=== PATIENT | female | born 1955 | race Caucasian/White ===

== ENCOUNTER 2023-12-30 08:04 | Outpatient (OUT) | payer MEDICARE, SELFPAY ==
[2023-12-30 08:43] LABS: Basophils Percent Auto 0.4 % (0.2-2.0); Eosinophils Absolute Auto 0.2 10^3/uL (0.0-0.7); Eosinophils Percent Auto 2.7 % (0.9-7.0); Hematocrit 42.7 % (36.0-48.0); Hemoglobin 14.1 g/dL (12.0-16.0); Immature Granulocytes Abs Auto 0.01 10^3/uL (0.00-0.03); Immature Granulocytes Pct Auto 0.2 % (0.0-0.5); Lymphocytes Absolute Auto 0.9 10^3/uL (1.2-3.8); Lymphocytes Percent Auto 16.2 % (20.5-60.0); Mean Corpuscular Hemoglobin 30.7 pg (26.7-34.0); Mean Corpuscular Volume 92.8 fL (81.0-99.0); Mean Platelet Volume 10.8 fL (9.5-13.5); Monocytes Absolute Auto 0.5 10^3/uL (0.3-0.8); Monocytes Percent Auto 9.6 % (1.7-12.0); Neutrophils Absolute Auto 3.9 10^3/uL (1.4-6.5); Neutrophils Percent Auto 70.9 % (43.0-75.0); Platelet Count 160 10^3/uL (150-450); Red Cell Distribution Width 12.9 % (11.0-15.0); White Blood Count 5.5 10^3/uL (4.0-11.0)
[2023-12-30 09:19] LABS: Alanine Aminotransferase 27 U/L (14-59); Albumin Globulin Ratio 1.1; Albumin Level 3.4 g/dL (3.4-5.0); Alkaline Phosphatase 111 U/L (46-116); Anion Gap 13.8; Aspartate Amino Transferase 23 U/L (15-37); BUN Creatinine Ratio 13.7; Bilirubin Total 0.5 mg/dL (0.2-1.0); Calcium 8.8 mg/dL (8.5-10.1); Carbon Dioxide 25.9 mmol/L (21.0-32.0); Chloride 109 mmol/L (98-107); Chol HDL Ratio 2.3; Cholesterol 150 mg/dL (<=200); Estimated GFR (African America >60 (>=60 mL/min/1.73m^2); Estimated GFR (Non-African Ame 54 (>=60 mL/min/1.73m^2); Globulin 3.2 g/dL; Glucose 89 mg/dL (74-106); HDL Cholesterol 66 mg/dL (40-60); Potassium 4.7 mmol/L (3.5-5.1); Sodium 144 mmol/L (136-145); Total Protein 6.6 g/dL (6.4-8.2); Triglycerides 33 mg/dL (<=150); VLDL CHOLESTEROL 6.6 mg/dL
== END 2023-12-30 08:05 | disposition home or self-care (01) ==
LOC: LAB 08:09
PROVIDERS: PCP Family Medicine; Visit Provider Family Medicine
DX: Z00.00 Encounter for general adult medical examination without abnormal findings (principal); E16.2 Hypoglycemia, unspecified; E55.9 Vitamin D deficiency, unspecified; E78.00 Pure hypercholesterolemia, unspecified; Z13.220 Encounter for screening for lipoid disorders; Z13.6 Encounter for screening for cardiovascular disorders
CPT/HCPCS: 36415; 80053; 80061; 82306; 85025

== ENCOUNTER 2024-10-19 08:34 | Outpatient (OUT) | payer MEDICARE, SELFPAY ==
--- OUTSIDE RECORDS SUMMARY | 2024-10-19 08:38 | XMS_ITS | Clinical Summary ---
Author Organization [facility] Address [address] [place] [address] Phone Care Team Providers Care Gymnasium Teacher Name Role Phone Unavailable Primary Care Provider Unavailabl e Social History Tobacco Use Types Packs/Day Years Used Date Smoking Tobacco: Never Assessed Comments Unknown Sex and Gender Information Value Date Recorded Sex Assigned at Not on file Legal Sex Female 7:37 PM EST Gender Identity Not on file Sexual Orientation Not on file Plan of Treatment Not on file
--- OUTSIDE RECORDS SUMMARY | 2024-10-19 08:38 | XMS_ITS | Encounter Summary ---
Author Organization [facility] Address [address] [place] [address] Care Team Providers Care Geological Specialist Name Role Phone Delmis Carlisle DO Primary Care Provider [phone] Delmis Carlisle DO Unavailable [phone] Reason for Visit * Reason Comments Med Refill Encounter Details Date Type Department Care Team (Late st Contact Info) Description 12/28/2023 Refill [facility] [address] [facility] [address] [place] [phone] Delmis Carlisle, DO [address] [facility] [address] [place] [address] Pure hypercholesterolemia Social History Tobacco Use Types Packs/Day Years Used Date Smoking Tobacco: Never Smokeless Tobacco: Never Alcohol Use Standard Drinks/Week Comments Not Currently 0 (1 standard drink = 0.6 oz pure alcohol) caffeine intake: 3-4 cups per day of coffee; soda AUDIT-C Answer Date Recorded Q1: How often do you have a drink containing alcohol? Never 09/24/2022 Q2: How many drinks containi ng alcohol do you have on a typical day when you are drinking? Patient does not drink Q3: How often do you have si x or more drinks on one occasion? Never 09/24/2022 PHQ-2 Answer Date Recorded Patient Health Questionnaire-2 Score 0 11/06/2023 Comments No Sex and Gender Information Value Date Recorded Sex Assigned at Not on file Legal Sex Female 6:54 PM EDT Gender Identity Not on file Sexual Orientation Not on file documented as of this encounter Plan of Treatment Upcoming Encounters Date Type Department Care Team (Late st Contact Info) Description 06/09/2025 10:30 AM EDT Office Visit [facility] [address] [place] [address] Andriy Jones DO [address] [place] [address] documented as of this encounter Visit Diagnoses Diagnosis Pure hypercholesterolemia Pure hypercholesterolemia documented in this encounter Care Teams Geological Specialist Relationship Specialty Start Date End Date Delmis Carlisle DO [address] [place] [address] PCP - General Family Medicine 09/24/22 Delmis Carlisle DO [address] [place] [address] PCP - [employer] 01/09/24 documented as of this encounter
--- OUTSIDE RECORDS SUMMARY | 2024-10-19 08:38 | XMS_ITS | Encounter Summary ---
Author Organization [facility] Address [address] [facility] [place] [address] Care Team Providers Care Traffic Or System Dispatcher Name Role Phone Delmis Carlisle DO Primary Care Provider [phone] Delmis Carlisle DO Unavailable [phone] Encounter Details Date Type Department Care Team (Late st Contact Info) Description 09/24/2022 Orders Only [facility] [address] [place] [address] Kayli Owens LPN Social History Tobacco Use Types Packs/Day Years Used Date Smoking Tobacco: Never Smokeless Tobacco: Never Tobacco Cessation:Counseling Given: Not Answered Alcohol Use Standard Drinks/Week Comments Not Currently 0 (1 standard drink = 0.6 oz pur e alcohol) AUDIT-C Answer Date Recorded Q1: How often do you have a drink containing alcohol? Never 09/24/2022 Q2: How many drinks containi ng alcohol do you have on a typical day when you are drinking? Patient does not drink Q3: How often do you have si x or more drinks on one occasion? Never 09/24/2022 PHQ-2 Answer Date Recorded Patient Health Questionnaire-2 Score 0 09/25/2022 Comments Unknown Sex and Gender Information Value Date Recorded Sex Assigned at Not on file Legal Sex Female 6:54 PM EDT Gender Identity Not on file Sexual Orientation Not on file documented as of this encounter Functional Status * Audit-C Score Answer Date of Assessment Author 0 09/24/2022 1:39 PM EDT Anthony Owens LPN * Question Answer Date of Assessment Author Q1: How often do you have a drink containing alcohol? Never 09/24/2022 1:39 PM EDT Kayli Owens LPN Q2: How many drinks containing alcohol do you have on a typical day when you are drinking? Patient does not drink 09/24/2022 1:39 PM EDT Kayli Owens LPN Q3: How often do you have six or more drinks on one occasion? Never 09/24/2022 1:39 PM EDT Kayli Owens LPN * Over the past 2 weeks, how often have you been bothered by any of the following problems? Question Answer Date of Assessment Author Little interest or pleasure in doing things Not at all 09/25/2022 7:16 AM EDT Destiny Fam MA Feeling down, depressed, or hopeless Not at all 09/25/2022 7:16 AM EDT Destiny Fam MA Patient Health Questionnaire -2 Score 0 09/25/2022 7:16 AM EDT Destiny Fam MA documented as of this encounter Plan of Treatment Upcoming Encounters Date Type Department Care Team (Late st Contact Info) Description 06/09/2025 10:30 AM EDT Office Visit [facility] [place] [facility] [address] [place] [phone] Andriy Jones DO [address] [place] [address] documented as of this encounter Visit Diagnoses Not on filedocumented in this encounter Care Teams Traffic Or System Dispatcher Relationship Specialty Start Date End Date Delmis Carlisle DO [address] [place] [address] PCP - General Family Medicine 09/24/22 Delmis Carlisle DO [address] [place] [address] PCP - [employer] 01/09/24 documented as of this encounter
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
--- OUTSIDE RECORDS SUMMARY | 2024-10-19 08:38 | XMS_ITS | Clinical Summary ---
Author Organization [facility] Address [address] [place] [address] Care Team Providers Care Remote Coders Name Role Phone Delmis Carlisle DO Primary Care Provider [phone] Delmis Carlisle DO Unavailable Allergies No known active allergies Medications Multiple Vitamins-Minerals (Emergen-C Immune) pack as directed Orally Active cholecalciferol (Vitamin D-3) 25 MCG (1000 UT) capsule Take 1,000 Units by mouth in the morning. Active co-enzyme Q-10 30 MG capsule Take 30 mg by mouth Daily Active Nutritional Supplements (JOINT FORMULA PO) Take by mouth Active sertraline (Zoloft) 100 MG tabletIndications:Anxie ty TAKE 1 AND 1/2 TABLETS DAILY BY MOUTH 135 tablet 3 024 Active Additional Information Patient taking differently: 1 tablet Oral Daily, Reported on 07/27/2024 fluticasone (Flonase) 50 MCG/ACT nasal sprayIndications:Nasal turbinate hypertrophy SPRAY 2 SPRAYS INTO EACH NOSTRIL IN THE MORNING 48 mL 1 024 Active esomeprazole (NexIUM) [address] capsuleIndications:Tigre roesophageal reflux disease without esophagitis Take 1 capsule (40 mg) by mouth Daily 90 capsule 3 025 Active rosuvastatin (Crestor) 5 MG tabletIndications:Pure hypercholesterolemia Take 1 tablet (5 mg) by mouth in the morning. 90 tablet 3 025 Active estradiol (Estrace) 0.1 MG/GM vaginal cream Insert 1 g into the vagina 2 (two) times a week Active Active Problems Problem Noted Date Diagnosed Date Stage 3a chronic kidney disease (CKD) 01/05/2024 Assessment & Plan (01/05/2024 8:02 PM EDT): Discussed with pt. She is to avoid NSAIDs. Will monitor this but no significant concern at this time. Slow transit constipation 11/06/2023 Assessment & Plan (11/06/2023 1:05 PM EDT): Discussed at length with the pt. She is to increase her water intake, Recommend colace daily and miralax 2 days a week. Doesn't need to use metamucil. Will also get an US of her abdomen for further evaluation. She is to call with any problems or not improving. Anxiety disorder 09/24/2022 Assessment & Plan (04/27/2023 2:12 PM EST): Discussed options. Will wean off zoloft and start lexapro. She is to call with any problems or not improving. Encouraged to continue working on a regular exercise routine. Also recommended looking into counseling. Atrophic vaginitis 09/24/2022 Chronic frontal sinusitis 09/24/2022 Epigastric pain 09/24/2022 Gastroesophageal reflux disease without esophagi tis 09/24/2022 Hot flashes due to menopause 09/24/2022 Urge incontinence of urine 09/24/2022 Vitamin D deficiency 09/24/2022 Pure hypercholesterolemia 09/24/2022 Assessment & Plan (04/27/2023 2:12 PM EST): Recommend with her [facility] that she continues to take crestor daily. Hypoglycemia 05/29/2010 Internal hemorrhoids without complication 2009 Irritable bowel syndrome 09/26/2009 Assessment & Plan (01/05/2024 8:01 PM EDT): Discussed at length with the pt. Encouraged to continue with increased water intake. I don't recommend supplement/herbal medications due to no studies, regulation, and not knowing if they will interact with her other medications. Recommend colace daily. If this is not enough she can take miralax as well but when she did this before she had diarrhea. Will also try and get linzess but not sure she will be able to get this due to cost. Migraine without aura, not refractory 07/12/2009 Encounters Date Type Department Care Team Description 09/07/2024 Telephone [facility] [address] [place] [address] Debi Velazco LPN 07/27/2024 11:30 AM EDT Office Visit [facility] [address] [place] [address] Delmis Carlisle, Acute bronchitis, unspecified organism (Primary Dx) 07/27/2024 Bamboo flowsheet [facility] [address] [place] [address] Delmis Carlisle DO 07/27/2024 Travel from Last 3 Months Immunizations Immunization Administration Dates Next Due Tdap 09/26/2021 Family History Medical History Relation Name Comments COD Cousin Ovarian cancer Cousin Heart disease Father Hyperlipidemia Father Diabetes Maternal Grandfather Heart disease Maternal Grandmother Heart disease Mother Hyperlipidemia Mother Hypertension Mother Heart disease Paternal Grandfather Heart disease Sibling Melanoma Neg Hx Relation Name Status Comments Cousin Daughter Alive Father Maternal Grandfather Maternal Grandmother Mother Paternal Grandfather Paternal Grandmother Sibling Alive 1 brother and 1 sister-healthy Son Alive x2 Social History Tobacco Use Types Packs/Day Years [...] Date Recorded Patient Health Questionnaire-2 Score 0 07/27/2024 Comments No Sex and Gender Information Value Date Recorded Sex Assigned at Not on file Legal Sex Female 6:54 PM EDT Gender Identity Not on file Sexual Orientation Not on file Last Filed Vital Signs Vital Sign Reading Time Taken Comments Blood Pressure 114/68 07/27/2024 11:29 AM EDT Pulse 84 07/27/2024 11:29 AM EDT Temperature 36.7 C (98.1 F) 07/27/2024 11:29 AM EDT Respiratory Rate - - Oxygen Saturation 94% 07/27/2024 11:29 AM EDT Inhaled Oxygen Concentration - - Weight 67.6 kg (149 lb) 07/27/2024 11:29 AM EDT Height 160 cm (5' 3 ) 07/27/2024 11:29 AM EDT Body Mass Index 26.39 07/27/2024 11:29 AM EDT Plan of Treatment Upcoming Encounters Date Type Department Care Team (Late st Contact Info) Description 06/09/2025 10:30 AM EDT Office Visit [facility] [address] [place] [address] Andriy Jones DO [address] [place] [address] Health Maintenance Due Date Last Done Comments CT Colonography 1957 FIT 1957 FOBT 1955 Sigmoidoscopy 1955 FIT-DNA 02/14/2023 02/15/2020, 02/15/2020 Mammogram 07/16/2023 07/15/2022, 0403/2021, 06/07/2020, Additional history exists Medicare Annual Wellness (AWV) 06/01/2024 06/02/2023 Influenza Vaccine (#1) 2024 Pneumococcal Vaccine: 65+ Years (1 of 1 - PCV) 04/12/2025 Postponed from 2007 (Patient Refused) Colonoscopy 03/22/2030 03/22/2020 Colorectal Cancer Screening 03/22/2030 Cervical Cancer Screening Discontinued Pap Smear Discontinued 05/06/2022, 01/04/2019 HPV/Cotest Discontinued Procedures Procedure Name Priority Date/Time Associated Diagnosis Comments BI MAMMOGRAM SCREENING BILATERAL Routine 07/15/2022 Urge incontinence Encounter for gynecological examination (general) (routine) without abnormal findings Encounter for screening for malignant neoplasm of cervix Encounter for screening for osteoporosis Encounter for screening for human papillomavirus (HPV) Postmenopausal atrophic vaginitis Urgency of urination Asymptomatic menopausal state Encounter for screening mammogram for malignant neoplasm of breast THINPREP TIS PAP AND HPV MRNA E6/E7 REFLEX HPV 16,18/45 (09122) Routine 05/06/2022 COLONOSCOPY Routine 03/22/2020 12:00 PM EST LAB COLOGUARD COLON CANCER SCREEN Routine 02/15/2020 from Last 3 Months or Most Recently Relevant to Health Maintenance Results * Bilateral screening mammogram (07/15/2022) Anatomical Region Laterality Modality Breast Bilateral Mammography Impressions 07/15/2022 12:00 AM EDT NO MAMMOGRAPHIC EVIDENCE OF MALIGNANCY. ROUTINE FOLLOW-UP IS RECOMMENDED IN ONE YEAR. RESULT CODE: 1 Negative DENSITY CODE: 2 (approximately 25-50% glandular) FOLLOW UP: 1YR The false-negative rate of mammography is approximately 10-percent. Management of a palpable abnormality must be based on clinical grounds. Patient was entered into a reminder system with a target due date for the next mammogram. Impression dictated by: Jose Hahn Jr., D.OPaddy07/15/2022 3:06 PM Dictation Location: [facility] Transcribed By: MARIAM 07/15/22 1506 Dictated By: Jose Hahn Jr, DO 07/15/22 1505 Signed By: <Electronically signed by Jose Hahn Jr, DO in OV> 07/15/22 1506 Narrative 07/15/2022 12:00 AM EDT PERFORMED AT [facility] LOCATION:[address] [place] [address] [place] [address] Mammography Report Signed Patient: Maureen Blackmon MR#: [id number] : 1955 Acct:[id number] Age/Sex: 67 / F ADM Date: 07/15/22 Loc: MS Room: Type: REG CLI Attending Dr: Andriy Jones DO Copies to: DO Andriy Joseph DO Ordering Provider: Andriy Jones DO Date of Service: 07/15/22 MM/MM screening mammo BI w/CAD: screening;Screening mammogram, encounter for CLINICAL DATA: Screening for malignancy. SCREENING MAMMOGRAM - FULL FIELD DIGITAL WITH TOMOSYNTHESIS AND CAD COMPARISON:Mammograms dating back to 2018. Tomosynthesis craniocaudal and mediolateral oblique views of both breasts were obtained using low- dose digital technique. This examination was reviewed with the aid of CAD. The breast tissue is composed of scattered fibroglandular densities. There are no dominant masses, typically malignant calcifications or architectural distortion. There has been no significant interval change. MM/MM screening mammo BI w/CAD Procedure Note CONVERSION, GENERIC - 09/13/2022 PERFORMED AT [facility] LOCATION:[address] [place] [address] Mammography Report Signed Patient: Maureen Blackmon GMR#: [id number] : 8Acct:[id number] Age/Sex: 67 / FADM Date: 07/15/22 Loc: MS Room:Type: REG CLI Attending Dr: Andriy Jones DO Copies to: DO Andriy Joseph DO Ordering Provider: Andriy Jones DO Date of Service: 07/15/22 MM/MM screening mammo BI w/CAD:screening;Screening mammogram, encounter for CLINICAL DATA: Screening for malignancy. SCREENING MAMMOGRAM - FULL FIELD DIGITAL WITH TOMOSYNTHESIS AND CAD COMPARISON:Mammograms dating back to 2018. Tomosynthesis craniocaudal and mediolateral oblique views of both breastswere obtained using low- dose digital technique. This examination was reviewed with the aid ofCAD. The breast tissue is composed of scattered fibroglandular densities.There are no dominant masses, typically malignant calcifications or architectural distortion. There hasbeen no significant interval change. MM/MM screening mammo BI w/CAD IMPRESSION: NO MAMMOGRAPHIC EVIDENCE OF MALIGNANCY. ROUTINE FOLLOW-UP IS RECOMMENDED IN ONE YEAR. RESULT CODE: 1 Negative DENSITY CODE: 2 (approximately 25-50% glandular) FOLLOW UP: 1YR The false-negative rate of mammography is approximately 10-percent. Management of a palpable abnormality must be based on clinical grounds. Patient was entered into a reminder system with a target due date for thenext mammogram. Impression dictated by: Jose Hahn Jr., D.O.07/15/2022 3:06 PM Dictation Location: [facility] Transcribed By: MARIAM 07/15/22 1506 Dictated By: Jose Hahn Jr, DO 07/15/22 1505 Signed By: <Electronically signed by Jose Hahn Jr, DO inOV> 07/15/22 1506 Andriy Jones DO IMG BI PROCEDURES Final Resul t * THINPREP TIS PAP AND HPV MRNA E6/E7 REFLEX HPV 16,18/45 (22210) (05/06/2022) CLINICAL INFORMATION: None given [facility] LMP: NONE GIVEN [facility] PREV. PAP: PAP 01/04/19- NEG, HPV NEG [facility] PREV. BX: NONE GIVEN [facility] SOURCE: Cervix [facility] STATEMENT OF ADEQUACY: SATISFACTORY FOR EVALUATION [facility] INTERPRETATION/RES ULT: SEE COMMENT [facility] Comment: Negative for intraepithelial lesion or malignancy. Atrophic pattern; predominantly parabasal cells COMMENT: SEE COMMENT [facility] Comment: This Pap test has been evaluated with computer assisted technology. Parabasal cells in smears that lack maturation due to atrophy or other hormonal reasons cannot be differentiated from transformation zone cells. Accordingly, presence or absence of endocervical or transformation zone components cannot be reported in this patient. STENOCAPTIONER: SEE COMMENT [facility] Comment: DMK CT(ASCP) CT screening location: [place], [address] [place] [address]. COMMENT SEE COMMENT [facility] Comment: EXPLANATORY NOTE: The Pap is a screening test for cervical cancer. It is not a diagnostic test and is subject to false negative and false positive results. It is most reliable when a satisfactory sample, regularly obtained, is submitted with relevant clinical findings and history, and when the Pap result is evaluated along with historic and current clinical information. HPV MRNA E6/E7 Not Detected Not Detected [facility] Comment: Methodology: Intelligence Consultant-Mediated Amplification This assay detects E6/E7 viral messenger RNA (mRNA) from 14 high-risk HPV types (16,18,31,33,35,39,45,51,52,56,58,59,66,68). Cervical sources are required for HPV testing. If a vaginal source from a patient who has had a total hysterectomy with removal of cervix was submitted, please contact the testing laboratory for alternative testing options. For additional information, please refer to http://education.[employer]/faq/YVA824j5 (This link if provided for information/ educational purposes only.) 05/06/2022 Andriy Jones DO [facility] Final Result [facility] * Colonoscopy (03/22/2020 12:00 PM EST) Anatomical Region Laterality Modality Endoscopy 03/22/2020 12:0 0 PM EST Narrative 03/22/2020 12:00 PM EST PERFORMED AT [facility] LOCATION:[id number] normal Procedure Note CONVERSION, GENERIC - 07/24/2022 PERFORMED AT [facility] LOCATION:[id number] normal Delmis Carlisle DO ENDOSCOPY PROCEDURE ORDERA BLES Final Result * (ABNORMAL) Cologuard?? colon cancer screening (02/15/2020) COLOGUARD RESULT REPORTABLE Positive( A) Not Applicable [facility] Comment: It is recommended that a positive Cologuard screen be clinically correlated and followed-up with a structural examination of the colon such as diagnostic colonoscopy. Colonoscopies performed for a positive Cologuard may find as the most clinically significant lesion: colorectal cancer [4.0%], advanced adenoma (including sessile serrated polyps greater than or equal to 1cm diameter) [20%] or non- advanced adenoma [31%]; or no colorectal neoplasia [45%]. These estimates are derived from a prospective cross-sectional screening study of 10,000 individuals at average risk for colorectal cancer who were screened with both Cologuard and colonoscopy. (Table 3, Ana Romero al, N Engl J Med 2014;370(14):3071-0990.) The normal value (reference range) for this assay is negative. TEST TYPE: Composite algorithmic analysis of stool DNA-biomarkers with hemoglobin immunoassay. Quantitative values of individual biomarkers are not reportable and are not associated with individual biomarker result reference ranges. PRECAUTIONS AND LIMITATIONS: Cologuard is intended for colorectal cancer screening of adults of either sex, 45 years or older, who are at average-risk for colorectal cancer (CRC). Cologuard has been approved for use by the U.S. FDA. Cologuard may produce a false negative or false positive result. A negative Cologuard test result does not guarantee the absence of CRC or advanced adenoma (pre-cancer). Patients with a negative Cologuard test result should be advised to continue participating in a colorectal cancer screening program. The screening interval for Cologuard is currently recommended at an interval of every 3 years by the [place] [employer] and U.S. Multi-Society Task Force. A false positive result occurs when Cologuard produces a positive result, even though a colonoscopy may not find colorectal cancer or precancerous polyps. The performance of Cologuard has been established in a cross sectional study (i.e., single point in time) of average-risk adults aged 50-84. Cologuard performance in patients ages 45 to 49 years was estimated by sub-group analysis of near-age groups. Cologuard performance data in a 10,000 patient pivotal study using colonoscopy as the reference method can be accessed at the following location: www.[employer]/results. Additional description of the Cologuard test process, warnings and precautions can be found at www.cologuardtest.com. Rx only. 02/15/2020 Delmis M Petznick DO LAB MOLECULAR DIAGNOSTICS ORDERABLES Final Result [facility] from Last 3 Months or Most Recently Relevant to Health Maintenance Insurance [employer] MED[employer]ARE ADVANTAGE Care Teams Remote Coders Relationship Specialty Start Date End Date Delmis Carlisle DO [address] [address] PCP - General Family Medicine 09/24/22 Delmis Carlisle DO [address] [address] PCP - [employer] 01/09/24
--- OUTSIDE RECORDS SUMMARY | 2024-10-19 08:38 | XMS_ITS | Encounter Summary ---
Author Organization [facility] Address [address] [place] [address] Care Team Providers Care General Clerk Name Role Phone Delmis Carlisle DO Primary Care Provider [phone] Delmis Carlisle DO Unavailable [phone] Encounter Details Date Type Department Care Team (Late st Contact Info) Description 09/24/2022 Abstract [facility] [address] [place] [id number] Delmis Carlisle, [address] [facility] [address] [place] [address] Social History Tobacco Use Types Packs/Day Years [...] [facility] [address] [place] [address] Andriy Jones DO [address] [place] [address] documented as of this encounter Visit Diagnoses Not on filedocumented in this encounter Care Teams General Clerk Relationship Specialty Start Date End Date Delmis Carlisle DO [address] [place] [address] PCP - General Family Medicine 09/24/22 Delmis Carlisle DO [address] [place] [address] PCP - [employer] 01/09/24 documented as of this encounter
--- OUTSIDE RECORDS SUMMARY | 2024-10-19 08:38 | XMS_ITS | Encounter Summary ---
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 Name Role Phone Delmis Carlisle DO Primary Care Provider [phone] Delmis Carlisle DO Unavailable [phone] Encounter Details Date Type Department Care Team (Late st Contact Info) Description 11/14/2023 Abstract [facility] [address] [facility] [address] [place] [address] Andriy Jones DO [address] [facility] [place] [address] [place] [address] Social History Tobacco Use Types Packs/Day Years [...] BANG [address] [place] [id number] Andriy Jones DO [address] [place] [address] documented as of this encounter Visit Diagnoses Not on filedocumented in this encounter Care Teams Roof Painter Relationship Specialty Start Date End Date Delmis Carlisle DO [address] [place] [address] PCP - General Family Medicine 09/24/22 Delmis Carlisle DO [address] [place] [address] PCP - [employer] 01/09/24 documented as of this encounter
--- OUTSIDE RECORDS SUMMARY | 2024-10-19 08:38 | XMS_ITS | Clinical Summary ---
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 Name Role Phone Unavailable Primary Care Provider Unavailabl e Social History Tobacco Use Types Packs/Day Years Used Date Smoking Tobacco: Never Assessed Comments Unknown Sex and Gender Information Value Date Recorded Sex Assigned at Not on file Legal Sex Female 8:04 AM EST Gender Identity Not on file Sexual Orientation Not on file Plan of Treatment Health Maintenance Due Date Last Done Comments Anxiety Screening 1975 Depression Screening 1975 Hepatitis C Screening 1975 DTaP,Tdap,Td Vaccine (1 - Tdap) [address] Colonography 2002 Cologuard (FIT-DNA) 2002 Colonoscopy 2002 Colorectal Cancer Screening 2002 Diabetes Screening 2002 Fecal Occult Blood 2002 Lipid Screening 2002 Sigmoidoscopy 2002 Pneumococcal Vaccine: 50+ (1 of 1 - PCV) 2007 Shingrix Vaccine (1 of 2) 2007 Bone Density Screening 2022 Advance Directive Discussion 03/10/2024 Influenza Vaccine (#1) 2024 RSV Vaccine (1 - 1-dose 75+ series) 2032 Insurance [employer] P[employer]
[2024-10-19 09:00] LABS: Hematocrit 43.7 % (36.0-48.0); Hemoglobin 14.9 g/dL (12.0-16.0); Immature Granulocytes Abs Auto 0.00 10^3/uL (0.00-0.03); Immature Granulocytes Pct Auto 0.0 % (0.0-0.5); Lymphocytes Absolute Auto 1.0 10^3/uL (1.2-3.8); Mean Corpuscular HGB Conc 34.1 g/dL (29.9-35.2); Mean Corpuscular Hemoglobin 30.9 pg (26.7-34.0); Mean Corpuscular Volume 90.7 fL (81.0-99.0); Platelet Count 171 10^3/uL (150-450); Red Blood Count 4.82 10^6/uL (4.20-5.40); White Blood Count 5.0 10^3/uL (4.0-11.0)
[2024-10-19 10:48] LABS: Alanine Aminotransferase 37 U/L (14-59); Albumin Globulin Ratio 1.2; Albumin Level 3.7 g/dL (3.4-5.0); Alkaline Phosphatase 104 U/L (46-116); Anion Gap 8.1; Aspartate Amino Transferase 24 U/L (15-37); Blood Urea Nitrogen 14.0 mg/dL (7.0-18.0); Calcium 9.2 mg/dL (8.5-10.1); Carbon Dioxide 29.4 mmol/L (21.0-32.0); Chloride 108 mmol/L (98-107); Cholesterol 181 mg/dL (<=200); Estimated GFR (African America >60 (>=60 mL/min/1.73m^2); Estimated GFR (Non-African Ame 57 (>=60 mL/min/1.73m^2); Globulin 3.2 g/dL; Glucose 87 mg/dL (74-106); HDL Cholesterol 64 mg/dL (40-60); Potassium 4.5 mmol/L (3.5-5.1); Sodium 141 mmol/L (136-145); Total Protein 6.9 g/dL (6.4-8.2); Triglycerides 69 mg/dL (<=150); VLDL CHOLESTEROL 13.8 mg/dL
== END 2024-10-19 08:35 | disposition home or self-care (01) ==
LOC: LAB 08:36
PROVIDERS: PCP Family Medicine; Visit Provider Family Medicine
DX: Z00.00 Encounter for general adult medical examination without abnormal findings (principal); E78.00 Pure hypercholesterolemia, unspecified; N18.31 Chronic kidney disease, stage 3a; E16.2 Hypoglycemia, unspecified; E55.9 Vitamin D deficiency, unspecified
CPT/HCPCS: 36415; 80053; 80061; 82306; 85025